=== PATIENT | female | born 1970 ===

== ENCOUNTER 2023-12-02 08:49 | Emergency (ER) | payer OTHER, SELFPAY ==
--- NOTE | ~2023-12-02 | XR_ITS ---
EXAMINATION: XR CHEST CLINICAL INFORMATION: Productive cough COMPARISON: None available. TECHNIQUE: 2 views of the chest were obtained. FINDINGS: Clear lungs. No pleural effusion or pneumothorax. Normal heart size and mediastinal contours. XR/XR chest 2V IMPRESSION: No acute cardiopulmonary abnormality. Electronically signed by: Joey Figueroa MD 12/02/2023 10:18 AM EDT
[2023-12-02 09:27] VITALS: BP 173/83; PULSE 60; RESP 18; TEMP 36.6; O2SAT 98; BMI 27.8
[2023-12-02] MEDS: Tetracaine HCl/PF 0.5% Oph Sol 4 ML DROPS 1 DROP EYE-RIGHT (10:29)
[2023-12-02] MEDS: Fluorescein Sodium STRIP 1 STRIP EYE-RIGHT (10:29)
--- NOTE | 2023-12-02 10:31 | ED.EYEPROB ---
HPI - Eye Problem General Chief complaint: Eye Problems Stated complaint: Swollen eye Time Seen by Provider: 12/02/23 09:32 Source: patient, RN notes reviewed and old records reviewed Mode of arrival: ambulatory History of Present Illness ED Provider: Marissa Campbell PA-C [facility] Narrative: 53-year-old female with no significant past medical history presenting to the ED complaining of URI symptoms with productive cough x few days, and waking this morning with right eye crusted shut, with irritation/dryness, and swelling. Denies eye injury, vision changes/loss, pain with EOMs, fever/chills, CP/SOB. Denies wearing contacts, uses glasses to drive. Denies ocular trauma Related Data Previous Rx's ?Medication ?Instructions ?Recorded benzonatate 100 mg capsule 100 mg PO TID PRN cough #14 caps 12/02/23 erythromycin 5 mg/gram (0.5 %) eye 0.5 inch ophthalmic (eye) QID 7 12/02/23 ointment days #3.5 grams Allergies Allergy/AdvReac Type Severity Reaction Status Date / Time No Known Allergies Allergy Verified 12/02/23 09:28 Review of Systems Review of Systems: Yes all other systems are reviewed and are negative Constitutional: Constitutional: Reports as per [facility] Past Medical History Attestation statement: The following information was validated with the patient. Source: old records reviewed Social History Social History Advance Directives: No Advance Directives Information Provided: Yes Do you have a plan to hurt others: No Plan Physical Exam Vital Signs: Vital Signs: Last Vital Signs Temp 98 F 12/02/23 11:10 Pulse 60 12/02/23 11:10 Resp 18 12/02/23 11:10 BP 173/83 H 12/02/23 11:10 Pulse Ox 98 12/02/23 11:10 O2 Del Method Room Air 12/02/23 11:10 BMI result Body Mass Index 27.8 Const: General: cooperative, healthy appearing and no acute distress Orientation/consciousness: patient oriented x3 Limitations: no limitations HEENT: Head: Yes normal to inspection and Yes atraumatic Ears: hearing grossly normal bilaterally General nose exam: Normal external nose present Face and sinus: Yes normal facial exam Eyes: Other: Right eye with conjunctival injection and diffuse chemosis. EOMs intact without entrapment or pain. Fluorescein used without uptake. No periorbital edema or proptosis. VA 20/25 bilaterally (corrected) General: appearance normal, both eyes and all related structures Pupils: Equal, round and reactive pupils present EOM: EOMs intact bilaterally Direct Ophthalmoscopy: normal light reflex and no photophobia Neck: Neck: Yes normal visual inspection and Yes no meningeal signs Resp: Effort & Inspection: normal respiratory effort and no respiratory distress Auscultation: clear to auscultation bilaterally Cardio: Rate: regular rate Heart sounds: S1 normal heart sound present and S2 normal heart sound present Skin: Rashes: no rashes Wounds: no wounds Neuro: General: patient oriented x3, tone normal and no meningeal signs Cranial nerves: Yes CN's II-XII intact bilaterally and Yes Equal, round and reactive pupils present Gait exam (Neuro): Normal gait present Extrem: General: Yes normal to inspection Course Course Course Narrative: Fluorescein use without uptake. No corneal abrasion or ulceration appreciated XR chest 2V IMPRESSION: No acute cardiopulmonary abnormality. Results discussed with patient including worrisome signs and symptoms and strict return precautions, and when to return to the emergency department. They verbalized understanding and feel safe for discharge at this time. Medications Administered Discontinued Medications Generic Name Dose Route Start Last Admin Trade Name Freq PRN Reason Stop Dose Admin Fluorescein Sodium 1 strip 12/02/23 09:50 12/02/23 10:29 Fluorescein Sodium Strip EYE-RIGHT 12/02/23 09:51 1 strip ONCE ONE Administration Tetracaine HCl 1 drop 12/02/23 09:50 12/02/23 10:29 Tetracaine Hcl/Pf 0.5% Oph Melania 4 Ml Drops EYE-RIGHT 12/02/23 09:51 1 drop ONCE ONE Administration Medical Decision Making Medical Decision Making [facility] Narrative: 53-year-old female with no significant past medical history presenting to the ED complaining of URI symptoms with productive cough x few days, and waking this morning with right eye crusted shut, with irritation/dryness, and swelling. On exam vital signs stable, NAD, nontoxic appearing, physical exam as noted above with a right diffuse conjunctival injection and chemosis. No evidence of periorbital or orbital cellulitis. Lungs CTA. Concern for conjunctivitis vs allergies vs corneal abrasion. No evidence of ulceration. Concern for viral illness. Rule out pneumonia. Unlikely ACS/PE Plan: Ocular exam, CXR Please refer to course for remaining clinical decision making, interpretation of labs/imaging results, and discussions with consultants and/or family members. Differential Diagnosis Differential Diagnoses: The differential diagnosis associated with the presentation includes As above Lab Data Labs: Lab Results 12/02/23 Range/Units 11:06 Influenza Type A (PCR) NEGATIVE (Negative) Influenza Type B (PCR) NEGATIVE (Negative) RSV RNA Qual (PCR) NEGATIVE (Negative) SARS-CoV-2 RNA (RT-PCR) NEGATIVE (Negative) Independent Interpretation I performed an independent interpretation of an: Plain X-Ray Radiology Impression Discussion of test interpretation with radiology: I have reviewed the radiologist's reading. External Record Review External record reviewed: Inpatient record, Office record, Outpatient record, Prior outpatient labs, Prior outpatient radiology, Primary care record and Outside ED record Tests considered The following testing was considered but not selected: As above Prescription Management I considered prescription management with: Pain Medication and Antibiotic Discharge Plan Discharge Clinical Impression: Acute bacterial conjunctivitis Patient Disposition: Home, Self-Care Instructions: Conjunctivitis (ED) Additional Instructions: Please use eye ointment as prescribed Ramone Batres for cough, take as needed Your x-rays unremarkable Avoid rubbing her eye. If you develop any vision change/loss, fever/chills, shortness of breath or chest pain return to the ED Follow-up with her doctor & Ophthalmology Prescriptions: New erythromycin 5 mg/gram (0.5 %) ointment 0.5 inch ophthalmic (eye) QID 7 Days Qty: 3.5 0RF benzonatate 100 mg capsule 100 mg PO TID PRN (Reason: cough) Qty: 14 0RF Referrals: ED Physician,Generic [Physician] - Julian Porter [Physician] - Stand Alone Forms: Work/School Release Interventions: ED Discharge Assessment Last Done: 12/02/23 11:10 Discharge Date/Time: 12/02/23 11:10 Print Language: [place]
[2023-12-02 11:10] VITALS: BP 173/83; PULSE 60; RESP 18; TEMP 36.6; O2SAT 98
[2023-12-02 11:59] LABS: Influenza A PCR NEGATIVE (Negative); Influenza B PCR NEGATIVE (Negative); Resp Syncy Virus RNA Qual PCR NEGATIVE (Negative); SARS COV2 PCR INHOUSE NEGATIVE (Negative)
== END 2023-12-02 11:10 | disposition home or self-care (01) ==
PROVIDERS: Physician Assistant; Emergency Provider Emergency Medicine Emergency Medical Services
DX: H10.31 Unspecified acute conjunctivitis, right eye (principal); R50.9 Fever, unspecified; Z03.818 Encounter for observation for suspected exposure to other biological agents ruled out
CPT/HCPCS: 0241U; 71046; 99282; 99283